=== PATIENT | male | born 1990 | race Caucasian/White ===

== ENCOUNTER 2024-03-10 17:20 | Emergency (ER) | payer OTHER ==
[2024-03-10] MEDS ORDERED: TDAP (DIPHTH,PERTUSS(ACELL),TET VAC) 0.5 ML VIAL IMVAC ONE (20:05)
[2024-03-10] MEDS ORDERED: LIDOCAINE 1% 20 ML MDV ONE (20:05)
--- NOTE | 2024-03-10 21:20 | ER ---
Nurse's Notes [facility] Name: Gary Chirinos Age: 33 yrs Sex: Male : 1990 Arrival Date: 03/10/2024 Time: 17:20 Bed 13 Private MD: Diagnosis: Laceration without foreign body of lower leg Presentation: 03/10 17:46 Chief complaint: Patient states: Laceration to left leg onset 45 minutes [employer]. Pt states cm10 that he hit his leg on the corner of his truck door. Last tetanus shot approximately 4yrs ago but not sure. Coronavirus screen: Client denies travel out of the [place] in the last 14 days. Ebola Screen: Patient denies travel to an Ebola-affected area in the 21 days before illness onset. No symptoms or risks identified at this time. Complicating Factors: There are no complicating factors for this patient. Initial Sepsis Screen: Does the patient meet any 2 criteria? No. Patient's initial sepsis screen is negative. Does the patient have a suspected source of infection? No. Patient's initial sepsis screen is negative. Risk Assessment: Do you want to hurt yourself or someone else? Patient reports no desire to harm self or others. Onset of symptoms was March 10, 2024. 17:46 Method Of Arrival: Ambulatory cm10 17:46 Acuity: AIMEE 4 cm10 Triage Assessment: 17:48 General: Appears in no apparent distress. comfortable, Behavior is calm, cooperative. cm10 Pain: Complains of pain in left quadriceps Pain does not radiate. Pain currently is 4 out of 10 on a pain scale. Neuro: No deficits noted. Level of Consciousness is awake, alert, obeys commands, Oriented to person, place, time, situation, Appropriate for age. Respiratory: No deficits noted. Airway is patent Respiratory effort is even, unlabored, Respiratory pattern is regular, symmetrical. Injury Description: Laceration sustained to left quadriceps is clean, 2.6 to 7.5 cm long, not bleeding, was sustained 30-60 minutes ago. is bleeding a small amount. Historical: - Allergies: 17:48 No Known Allergies; cm10 - Home Meds: 17:48 None [Active]; cm10 - PMHx: 17:48 None; cm10 - PSHx: 17:48 None; cm10 - Immunization history:: Adult Immunizations up to date, Last tetanus immunization: < 5 years ago. - Infectious Disease History:: Denies. - Social history:: Smoking status: Patient denies any tobacco usage or history of. Screenin:10 [facility] ED Fall Risk Assessment (Adult) History of falling in the last 3 months, bm8 including since admission No falls in past 3 months (0 pts) Confusion or Disorientation No (0 pts) Intoxicated or Sedated No (0 pts) Impaired Gait No (0 pts) Mobility Assist Device Used No (0 pt) Altered Elimination No (0 pt) Score/Fall Risk Level 0 - 2 = Low Risk Oriented to surroundings, Maintained a safe environment, Educated pt \\T\\ family on fall prevention, incl call for assistance when getting out of bed, Assessed \\T\\ reinforced patient's understanding of fall precautions, Hourly rounding (assess needs \\T\\ fall precautionary measures) done, Used ambulatory aids as needed (educated on \\T\\ assisted with), Used gait belt as appropriate. Abuse screen: Denies threats or abuse. Nutritional screening: No deficits noted. Tuberculosis screening: No symptoms or risk factors identified. Assessment: 20:10 Reassessment: Patient appears in no apparent distress at this time. Patient and/or bm8 family updated on plan of care and expected duration. Pain level reassessed. Patient is alert, oriented x 3, equal unlabored respirations, skin warm/dry/pink. Patient denies pain at this time. Patient states feeling better. General: Appears in no apparent distress. comfortable, Behavior is calm, cooperative, appropriate for age. Pain: Complains of pain in left quadriceps Pain currently is 2 out of 10 on a pain scale. Quality of pain is described as burning. Neuro: No deficits noted. Level of Consciousness is awake, alert, obeys commands, Oriented to person, place, time, situation, Appropriate for age. Cardiovascular: Denies chest pain, Capillary refill < 3 seconds in bilateral fingers Patient's skin is warm and dry. Respiratory: Airway is patent Trachea midline Respiratory effort is even, unlabored, Respiratory pattern is regular, symmetrical, Breath sounds are clear bilaterally. Derm: Wound noted left quadriceps Wound is 1.5" lac to left lateral above the knee. Musculoskeletal: Denies. Injury Description: Laceration sustained to left quadriceps is clean, 0.5 to 2.5 cm long, not bleeding, was sustained 1-2 hours ago. is bleeding no active bleeding noted. Vital Signs: 17:46 BP 138 / 94; Pulse 86; Resp 16; Temp 98.1(O); Pulse Ox 98% on R/A; Weight 74.84 kg; cm10 Height 5 ft. 7 in. ; Pain 4/10; 20:10 BP 142 / 94; Pulse 65; Resp 18; Temp 98.1; Pulse Ox 100% ; Pain 2/10; bm8 17:46 Body Mass Index 25.84 (74.84 kg, 170.18 cm) cm10 17:46 Pain Scale: Adult cm10 20:10 Pain Scale: Adult bm8 Te Coma Score: 20:10 Eye Response: spontaneous(4). Motor Response: obeys commands(6). Verbal Response: bm8 oriented(5). Total: 15. ED Course: 17:24 Patient arrived in ED. mg5 17:25 Merle Rhoades PA-C [facility]. sb4 17:25 Hugo Moralez MD is Attending Physician. sb4 17:48 Triage completed. cm10 17:49 Arm band placed on right wrist. Patient placed in waiting room. cm10 20:03 Simone Barkley, RN is Primary Nurse. bm8 20:10 Patient has correct armband on for positive identification. Bed in low position. Call bm8 light in reach. Side rails up X 1. Adult w/ patient. Client placed on continuous cardiac and pulse oximetry monitoring. NIBP monitoring applied. Pulse ox on. NIBP on. Door closed. Noise minimized. Visitors limited. Warm blanket given. Pillow given. Verbal reassurance given. 20:10 Assist provider with laceration repair on left leg that was 2.5 cm. or less using bm8 sutures. Set up tray. Performed by Merle Rhoades PA-C Dressed with 4X4s, Neosporin, Patient tolerated well. Patient did not have IV access during this emergency room visit. 21:19 Hugo Moralez MD is Referral Physician. sb4 21:37 Provided Education on: post ER wound care and when to follow up with pcp. bm8 Administered Medications: 20:10 Drug: Boostrix Tdap IM 0.5 ml IM once; as a single dose Route: IM; Site: right deltoid; bm8 21:38 Follow up: Response: No adverse reaction bm8 20:22 Drug: Lidocaine Infiltration (1 %) 20 ml 20 ml Infiltration once; to bedside {Note: bm8 administered by provider .} Volume: 20 ml; Route: Infiltration; Site: wound; 21:38 Follow up: Response: No adverse reaction bm8 Medication: 20:10 VIS not applicable for this client. bm8 Outcome: 21:19 Discharge ordered by MD. howard 21:37 Discharged to home ambulatory, with family, bm8 21:37 Condition: stable 21:37 Discharge instructions given to patient, family, Instructed on discharge instructions, follow up and referral plans. medication usage, Demonstrated understanding of instructions, follow-up care, medications, 21:39 Patient left the ED. bm8 Signatures: Merle Rhoades, DONNA PAGustavo sb4 Mary Anderson, RN RN cm10 Jasmin Youngblood mg5 Simone Barkley RN RN bm8 Corrections: (The following items were deleted from the chart) 20:22 20:22 Lidocaine Infiltration (1 %) 20 ml 20 ml Infiltration bm8 bm8
--- NOTE | 2024-03-10 21:20 | EDPHYS ---
Physician Documentation [facility] Name: Gary Chirinos Age: 33 yrs Sex: Male : 1990 Arrival Date: 03/10/2024 Time: 17:20 Bed 13 Private MD: ED Physician Hugo Moralez HPI: 03/10 18:47 This 33 yrs old Male presents to ER via Ambulatory with complaints of Laceration To Leg.sb4 18:47 The patient has a laceration related to: working, car door, occurred outdoors, and sb4 there are no complicating factors. The injury was accidental. The laceration(s) is(are) located on the left quadriceps. Onset: The symptoms/episode began/occurred just prior to arrival. Associated signs and symptoms: The patient has no apparent associated signs or symptoms. The patient has not experienced similar symptoms in the past. The patient has not recently seen a physician. Historical: - Allergies: 17:48 No Known Allergies; cm10 - Home Meds: 17:48 None [Active]; cm10 - PMHx: 17:48 None; cm10 - PSHx: 17:48 None; cm10 - Immunization history:: Adult Immunizations up to date, Last tetanus immunization: < 5 years ago. - Infectious Disease History:: Denies. - Social history:: Smoking status: Patient denies any tobacco usage or history of. ROS: 18:47 Constitutional: Negative for fever, chills, and weight loss, sb4 18:47 Skin: Positive for laceration(s), of the left quadriceps, 18:47 All other systems are negative, Exam: 18:47 Constitutional: This is a well developed, well nourished patient who is awake, alert, sb4 and in no acute distress. Head/Face: Normocephalic, atraumatic. Eyes: Extra-ocular motions intact. Periorbital areas with no swelling, redness, or edema. ENT: Mucous membranes moist. 18:47 Skin: injury, laceration(s), the wound is approximately 4 cm(s), with a depth of 1 cm(s), of the left quadriceps, that can be described as clean, no foreign body, linear, without bleeding, Vital Signs: 17:46 BP 138 / 94; Pulse 86; Resp 16; Temp 98.1(O); Pulse Ox 98% on R/A; Weight 74.84 kg; cm10 Height 5 ft. 7 in. ; Pain 4/10; 20:10 BP 142 / 94; Pulse 65; Resp 18; Temp 98.1; Pulse Ox 100% ; Pain 2/10; bm8 17:46 Body Mass Index 25.84 (74.84 kg, 170.18 cm) cm10 17:46 Pain Scale: Adult cm10 20:10 Pain Scale: Adult bm8 Te Coma Score: 20:10 Eye Response: spontaneous(4). Motor Response: obeys commands(6). Verbal Response: bm8 oriented(5). Total: 15. Laceration: 03/11 01:01 Wound Repair of 4cm ( 1.6in ) subcutaneous laceration to left quadriceps. Distal sb4 neuro/vascular/tendon intact. Anesthesia: Local anesthetic administered with 5 mls of 1% lidocaine. Wound prep: Simple cleansing with betadine by me, Wound irrigation with saline by me, Copious irrigation. Skin closed with 5 4-0 Prolene using simple sutures and sterile technique. Dressed with non-adherent dressing. Patient tolerated well. MDM: 03/10 17:52 Medical Screening Exam initiated sb4 03/11 01:01 Data reviewed: vital signs, nurses notes, and as a result, I will discharge patient. sb4 Counseling: I had a detailed discussion with the patient and/or guardian regarding the historical points, exam findings, and any diagnostic results supporting the discharge/admit diagnosis, the need for outpatient follow up, for suture removal in 10 days, to return to the emergency department if symptoms worsen or persist or if there are any questions or concerns that arise at home. Administered Medications: 03/10 20:10 Drug: Boostrix Tdap IM 0.5 ml IM once; as a single dose Route: IM; Site: right deltoid; bm8 21:38 Follow up: Response: No adverse reaction bm8 20:22 Drug: Lidocaine Infiltration (1 %) 20 ml 20 ml Infiltration once; to bedside {Note: bm8 administered by provider .} Volume: 20 ml; Route: Infiltration; Site: wound; 21:38 Follow up: Response: No adverse reaction bm8 Disposition Summary: 03/10/24 21:19 Discharge Ordered Notes: Location: Home sb4 Problem: new sb4 Symptoms: have improved sb4 Condition: Stable sb4 Diagnosis - Laceration without foreign body of lower leg sb4 Followup: sb4 - With: Private Physician - When: 10 - 14 days - Reason: Staple/Suture removal Discharge Instructions: - Discharge Summary Sheet sb4 - Laceration Care, Adult, [id number] sb4 - Sutures, [place], or Adhesive Wound Closure, [id number] sb4 Forms: - Patient Portal Instructions sb4 - Leadership Thank You Letter sb4 Signatures: Merle Rhoades PA-C PA-C sb4 Mary Anderson, RN RN cm10 Simone Barkley RN RN bm8
[2024-03-11 01:55] VITALS: TEMP 98.1
[2024-03-11 01:56] VITALS: BP 142/94; O2SAT 100
== END 2024-03-10 21:39 | disposition home or self-care (01) ==
LOC: ER 17:20
DX: S81.812A Laceration without foreign body, left lower leg, initial encounter (principal)
CPT/HCPCS: 96372; 99284; 12032; J2003